=== PATIENT | female | born 1975 | race Caucasian/White ===

== ENCOUNTER 2018-02-28 02:08 | Emergency (ER) | payer BC ==
[2018-02-28] MEDS ORDERED: Succinylcholine 200 MG/10 ML MDV IV ONE (02:09)
[2018-02-28] MEDS ORDERED: Etomidate 2 MG/ML 20 ML SDV IVPUSH ONE (02:09)
[2018-02-28] MEDS ORDERED: Rocuronium 50 MG/5 ML Vial IV ONE (02:09)
[2018-02-28] MEDS ORDERED: Sodium Chloride 0.9% 1,000 ML IV ONE ×2 (02:32)
[2018-02-28] MEDS ORDERED: Midazolam 1 MG/ML 2 ML SDV ONE (02:36)
[2018-02-28] MEDS ORDERED: Midazolam 1 MG/ML 2 ML SDV IVPUSH ONE (02:38)
--- NOTE | 2018-02-28 02:52 | EDM.PDOC ---
ED HPI GENERAL MEDICAL PROBLEM - General Stated Complaint: THROWING UP BLOOD Time Seen by Provider: 02/28/18 02:47 Source of Information: Reports: Patient, Family History Limitations: Reports: No Limitations - History of Present Illness INITIAL COMMENTS - FREE TEXT/NARRATIVE: HISTORY AND PHYSICAL: History of present illness: 42-year-old female presenting emergency department with copious bleeding from mouth post tonsillectomy on Monday and . 15 minutes before arrival in the emergency department patient and have copious bleeding from her mouth and nose. Previous tonsillectomy and [place] on Monday roughly 1 week prior to presentation. Past medical history of diabetes. On arrival patient had copious amounts of blood proximally 200-2 50 mL out oral. Patient was maintaining on our airway as well as oxygen saturations in the 98 percentile. Patient continued to bleed. Anesthesia was called as well as emergency personnel. Did talk to Dr. Dwyer emergency medicine [place] and initiated transfer. Also talked to Dr. Prescott ear nose and throat in [place] who is aware patient will meet in ER. Patient was intubated by anesthesia airway secured and transported by air ambulance to the emergent department in [place] for emergency surgery. 2 L normal saline rapidly infuse as well as O- ordered and pushed 2 units start. Review of systems: As per history of present illness and below otherwise all systems reviewed and negative. Past medical history: As per history of present illness and as reviewed below otherwise noncontributory. Surgical history: As per history of present illness and as reviewed below otherwise noncontributory. Social history: No reported history of drug or alcohol abuse. Family history: As per history of present illness and as reviewed below otherwise noncontributory. Physical exam: HEENT: Atraumatic, normocephalic, pupils reactive, negative for conjunctival pallor or scleral icterus, mucous membranes moist, throat clear, neck supple, nontender, trachea midline. Lungs: Clear to auscultation, breath sounds equal bilaterally, chest nontender. Heart: S1S2, regular, negative for clicks, rubs, or JVD. Abdomen: Soft, nondistended, nontender. Negative for masses or hepatosplenomegaly. Negative for costovertebral tenderness. Pelvis: Stable nontender. Genitourinary: Deferred. Rectal: Deferred. Extremities: Atraumatic, negative for cords or calf pain. Neurovascular unremarkable. Neuro: Awake, alert, oriented. Cranial nerves II through XII unremarkable. Cerebellum unremarkable. Motor and sensory unremarkable throughout. Exam nonfocal. Diagnostics: [] Therapeutics: [] Impression: Acute post tonsillar bleed Plan: See above H&P. - Related Data Allergies Allergy/AdvReac Type Severity Reaction Status Date / Time Penicillins Allergy Airway Verified 05/24/15 20:29 Tightness Home Meds: Home Meds Enalapril Maleate 2.5 mg PO DAILY 05/24/15 [History] Insulin Aspart [NovoLOG] 10 unit SUBCUT TID 05/24/15 [History] Insulin Glarg,Human.Rec.Analog [LantUS] 21 units SQ BEDTIME 05/24/15 [History] Simvastatin 40 mg PO DAILY 05/24/15 [History] Past Medical History - Past Surgical History Other HEENT Surgeries/Procedures: lasix eye surgery ED ROS GENERAL - Review of Systems Review Of Systems: ROS reveals no pertinent complaints other than HPI. ED EXAM, GENERAL - Physical Exam Exam: See Below Course - Orders/Labs/Meds Orders: Active Orders 24 hr Category Date Time Status COMPREHENSIVE METABOLIC PN,CMP [CHEM] Stat Lab 02/28/18 02:30 Ordered INR,PT,PROTHROMBIN TIME [COAG] Stat Lab 02/28/18 02:30 Ordered Transfuse Red Blood Cells [COMM] Stat Oth 02/28/18 02:33 Ordered Labs: Laboratory Tests 02/28/18 Range/Units 02:20 WBC 9.18 (4.0-11.0) K/uL RBC 4.41 (4.30-5.90) M/uL Hgb 13.0 (12.0-16.0) g/dL Hct 39.5 (36.0-46.0) % MCV 89.6 (80.0-98.0) fL MCH 29.5 (27.0-32.0) pg MCHC 32.9 (31.0-37.0) g/dL RDW Std Deviation 41.5 (28.0-62.0) fl RDW Coeff of Sandie 13 (11.0-15.0) % Plt Count 393 (150-400) K/uL MPV 9.20 (7.40-12.00) fL Neut % (Auto) 42.6 L (48.0-80.0) % Lymph % (Auto) 42.0 H (16.0-40.0) % [place] % (Auto) 11.2 (0.0-15.0) % Eos % (Auto) 3.8 (0.0-7.0) % Baso % (Auto) 0.4 (0.0-1.5) % Neut # (Auto) 3.9 (1.4-5.7) K/uL Lymph # (Auto) 3.9 H (0.6-2.4) K/uL [place] # (Auto) 1.0 H (0.0-0.8) K/uL Eos # (Auto) 0.4 (0.0-0.7) K/uL Baso # (Auto) 0.0 (0.0-0.1) K/uL Meds: Medications Discontinued Medications Generic Name Dose Route Start Last Admin Trade Name Freq PRN Reason Stop Dose Admin Midazolam HCl Confirm 02/28/18 02:36 Versed 1 Mg/Ml Administered 02/28/18 02:37 Dose 6 mg .ROUTE .STK-MED ONE Departure - Departure Time of Disposition: 02:52 Disposition: DC/Tfer to Other 70 Condition: Critical Clinical Impression: Post-tonsillectomy hemorrhage - Discharge Information Referrals: PCP,None [Primary Care Provider] - - My Orders Last 24 Hours: My Active Orders 02/28/18 02:30 COMPREHENSIVE METABOLIC PN,CMP [CHEM] Stat INR,PT,PROTHROMBIN TIME [COAG] Stat 02/28/18 02:33 Transfuse Red Blood Cells [COMM] Stat - Assessment/Plan Last 24 Hours: My Active Orders 02/28/18 02:30 COMPREHENSIVE METABOLIC PN,CMP [CHEM] Stat INR,PT,PROTHROMBIN TIME [COAG] Stat 02/28/18 02:33 Transfuse Red Blood Cells [COMM] Stat
[2018-02-28 03:02] LABS: CHLORIDE,CL 106 mmol/L (98-107); SODIUM,NA 143 mmol/L (136-145)
--- NOTE | 2018-02-28 03:25 | PCM.SN ---
- Free Text/Narrative Note: called for emergency intubation s/p tonsillectomy now actively bleeding. Patient verbally consents to intubation. [facility] Electronic care recording times and vitals. See report. Patient was given 100% O2 via blowby due to patient actively spitting up blood in sitting position. Sats 100% Etomidate 34mg IV push followed by Succ 140mg IV push. Atraumatic intubation with Mac 3.5 blade full view of cords with positive heme in mouth and oropharynx. 7 ET tube placed without difficulty 21 cm at lip Bilateral breath sounds and positive ETCO2. Secured in place, VSS. Sedation and paralytic managed by flight crew and ER physician.
[2018-02-28 04:14] VITALS: BP 164/114
== END 2018-02-28 03:10 | disposition other institution (70) ==
LOC: MW.ED 02:08
DX: J95.830 Postprocedural hemorrhage of a respiratory system organ or structure following a respiratory system procedure (principal); Z88.0 Allergy status to penicillin
CPT/HCPCS: 36430; 80053; 85025; 85610; 86850; 86900; 86901; 86920; 86921; 86922; 96360; 96374; 99291; J0330; J2250; J7040; P9016